=== PATIENT | female | born 1980 | race Caucasian/White ===

== ENCOUNTER → 2023-05-02 14:59 | Outpatient (REF) | payer OTHER, SELFPAY | LOC: WDC 14:59 | PROVIDERS: ATTENDING PHYSICIAN Registered Nurse | DX: Z12.31 Encounter for screening mammogram for malignant neoplasm of breast (principal) | CPT/HCPCS: 77063; 77067 ==

== ENCOUNTER → 2024-05-13 14:19 | Outpatient (REF) | payer BC, SELFPAY | LOC: WDC 14:19 | PROVIDERS: ATTENDING PHYSICIAN Student in an Organized Health Care Education/Training Program | DX: Z12.31 Encounter for screening mammogram for malignant neoplasm of breast (principal) | CPT/HCPCS: 77063; 77067 ==

== ENCOUNTER → 2024-07-19 09:59 | Outpatient (REF) | payer BC, SELFPAY | LOC: WDC 09:59 | PROVIDERS: ATTENDING PHYSICIAN Student in an Organized Health Care Education/Training Program | DX: R92.30 Dense breasts, unspecified (principal) | CPT/HCPCS: 76641 ==